=== PATIENT | male | born 1975 | race Asian ===

== ENCOUNTER 2025-03-24 19:13 | Inpatient (IN) | payer BC, SELFPAY ==
[2025-03-24] VITALS (13 sets, daily range): BP systolic 125–161; BP diastolic 72–94; BMI 25.4; BMI 25.6
--- NOTE | 2025-03-24 13:17 | ED.GENMED ---
History of Present Illness
<Radha Morales PA-C - Last Filed: 03/24/25 19:46>
General
Chief Complaint: Chest Pain
Source: patient
Exam Limitations: none
Time Seen by Provider: 03/24/25 13:16
History of Present Illness
History of Present Illness:
49yoM with no significant past medical history presenting for evaluation of chest pain. Symptoms began about 1.5 hours ago while he was doing some light chores around his house. He developed some discomfort in his central chest discomfort which he
thought was heartburn. He took a Pepcid without any relief. He subsequently felt an aching, throbbing discomfort in his left arm and jaw. He became worried that he was having a heart attack so came to the ED for evaluation. His arm/jaw
discomfort is now improved after taking Tylenol but he still has central chest tightness. He denies any shortness of breath, pleuritic pain, leg swelling, diaphoresis, nausea, vomiting, abdominal pain. No prior history of heart disease. He vapes
nicotine.
Phy Exam
<Radha Morales PA-C - Last Filed: 03/24/25 19:46>
General Physical Exam
General Presentation: well appearing and no apparent distress
General age: appears stated age
General Skin: warm and dry
General Habitus: normal
General Mental: alert
ENT Exam
ENT Exam: normocephalic
Cardiovascular Exam
Cardiovascular Exam: regular rate/rhythm, no edema, no murmur and normal peripheral pulses (2+ radial pulses bilaterally)
Pulmonary Exam
Pulmonary Exam: lungs clear, no respiratory distress, no rales, no crackles, no rhonchi and no wheezing
Neurological Exam
Neurological Exam: alert
[place] Coma Scale
Eye Opening: Spontaneous
Verbal Response: Oriented
Motor Response: Obeys Commands
GCS Total Score: 15
Skin Exam
Skin Exam: normal color and warm/dry
Psychiatric Exam
Psychiatric Exam: normal mood/affect
<Aida Donohue DO - Last Filed: 03/24/25 17:10>
[place] Coma Scale
GCS Total Score: 15
Scores
<Radha Morales PA-C - Last Filed: 03/24/25 19:46>
Heart Score for Chest Pain Patients
STEMI patient?: No
History: Moderately Suspicious
ECG: Normal
Age: >45 - <65 years
Risk Factors: 1 or 2 Risk Factors
Troponin: >/= 3 x Normal Limit
Heart Score for Chest Pain Patients: 5
Heart Score Risk: 20.3% MACE over next 6 weeks
Course
<Radha Morales PA-C - Last Filed: 03/24/25 19:46>
Orders/Labs/Results
Orders:
Orders
03/24/25 12:58
ECG [Electrocardiogram (*1)] Urgent
Reason for Study: Chest Pain
EKG- Treatment ONCE
03/24/25 13:10
Complete Blood Count/With Diff Urgent
03/24/25 13:11
Comprehensive Metabolic Panel Urgent
Troponin I Urgent
03/24/25 13:26
Cardiac Monitoring- Treatment ONCE
CR Chest - 2 Views Urgent
Comment:
Reason For Exam: CP
03/24/25 13:50
EKG- Treatment ONCE
03/24/25 Dinner
Cholesterol Lowering
Cholesterol Lowering: Sodium, 2 Gram
03/24/25 16:08
Troponin I Urgent
03/24/25 16:10
Electrocardiogram (*1) Urgent
Reason for Study: Chest Pain
03/24/25 16:44
Aspirin Chewable [Low Strength Aspirin] 324 mg PO NOW STA
03/24/25 16:52
Heparin 4,000 units IV NOW STA
Nursing to Place Non Medication Order As Directed
Physician Order: PTT 6 hours after initial start of Heparin infusion
Above order entered?: Yes
03/24/25 16:55
Nitroglycerin Sublingual [Nitrostat (Sublingual)] 0.4 mg SL NOW STA
03/24/25 16:57
PTT Urgent
Comment: Obtain baseline before beginning heparin infusion if not already collected
03/24/25 17:15
Heparin 83790 Units/250 ml 25,000 units in 250 ml IV PER PROTOCOL
Weight to be used for heparin protocol in kilograms (kg):: 78
Protocol:: Cardiac Tx/Acute Coronary
PTT Goal Range to be used:: PTT 73 to 111 seconds
Order type:: Initial
INITIAL Infusion Dose (UNITS/KG/hr) & then follow protocol:: 15 units/kg/hr
Infusion Dose in UNITS/hr & then follow protocol (UNITS/hr):: 1,150
INFUSION RATE in mL/hr & then follow protocol (mL/hr):: 11.5
PTT less than or equal to 64 seconds:: Increase rate by 200 units/hr (+ 2 mL/hr)
PTT 64.1 to 72.9 seconds:: Increase rate by 100 units/hr (+ 1 mL/hr)
PTT 73 to 111 seconds:: Target Range. No change in rate.
PTT 111.1 to 130.9 seconds:: Decrease rate by 100 units/hr (- 1 mL/hr)
PTT 131 to 199.9 seconds:: HOLD for 1 hr. Then decrease rate by 200 units/hr (- 2 mL/hr)
PTT greater than or equal to 200 seconds:: HOLD for 2 hrs & Notify Provider. Then decrease by 200 units/hr (-
2 mL/hr)
Lab follow-up:: Each change, PTT q6h until 2 consecutive are therapeutic. Then PTT
daily.
03/24/25 18:20
Admit Patient As Directed
Co-Sign Provider:
Level of Care: Inpatient admission
Assign to:: IVU
Physician / Group: Misha
Diagnosis: NSTEMI
Reason for Hospitalization: NE
Expected length of stay greater than two midnights?: Yes
ELOS- Estimated Length of Stay in days: 3
I certify the patient meets the requirements for IP care: Yes
Code Status As Directed
Resuscitation Status: Full Code
VTE Contraindication Routine
VTE Mechanical Device Contraindication: Medical Contraindication
Pharmocologic Contraindication: Medical Contraindication
03/24/25 18:21
Glycohemoglobin (HgbA1c) Routine
Activity As Directed
Activity Level: Bathroom Privileges
INT (Intravenous Needle Therapy) As Directed
Comment: maintain peripheral IV access
Intake/ Output As Directed
Frequency: Per unit guidelines
Vital Signs As Directed
Frequency: q4h
Weight As Directed
Frequency: Daily
PRN Pain Medication Management As Directed
May give lesser potent ordered pain med per pt: Yes
preference::
Protocol:: Medication orders for pain may be administered in a
manner that supports deferring to patient preference
when the pt is:
- Requesting an ordered lesser potent pain medication.
Least to most potent pain medications are defined
as: acetaminophen < NSAID < tramadol < opioids
(morphine, oxycodone, hydromorphone).
- Requesting a lesser dose of the same medication IF
ORDERED.
- Requesting a less intrusive route of administration
if both routes are prescribed by the provider (PO <
IV).
03/24/25 18:27
O2 Therapy [RESP] Routine
Nasal Cannula Liter Flow: 2 LPM
Titrate/Wean O2 to maintain O2 sat greater than (%): 90
Special Instructions: 2 liters/minute as needed for pulse oximetry less than 90%
03/24/25 18:28
Echo 2D MMode Color/Doppler Routine
Reason for Study: chest pain
ECG as needed As Directed
ECG as needed for:: Chest Pain
Additional Instructions:: with chest pain x 2 episodes.
03/24/25 18:30
Electrocardiogram (*1) Q3H
Reason for Study: Chest Pain
Comment: at admission and Q3H for total of 3, to be done with each troponin
Acetaminophen [Tylenol] 1,000 mg PO Q6HPRN PRN mild pain
03/24/25 18:32
Admit/Transfer Patient As Directed
Co-Sign Provider:
Level of Care: Inpatient admission
Assign to:: IVU
Physician / Group: Misha
Diagnosis: NSTEMI
Reason for Hospitalization: NE
Expected length of stay greater than two midnights?: Yes
ELOS- Estimated Length of Stay in days: 3
I certify the patient meets the requirements for IP care: Yes
PRN Pain Medication Management As Directed
May give lesser potent ordered pain med per pt: Yes
preference::
Protocol:: Medication orders for pain may be administered in a
manner that supports deferring to patient preference
when the pt is:
- Requesting an ordered lesser potent pain medication.
Least to most potent pain medications are defined
as: acetaminophen < NSAID < tramadol < opioids
(morphine, oxycodone, hydromorphone).
- Requesting a lesser dose of the same medication IF
ORDERED.
- Requesting a less intrusive route of administration
if both routes are prescribed by the provider (PO <
IV).
03/24/25 19:00
Atorvastatin [Lipitor] 40 mg PO QPM
03/24/25 19:26
Troponin I Q3H
Comment: at admit & Q3H for 3 total including ED draws, obtain ECG with each level
03/24/25 21:30
Electrocardiogram (*1) Q3H
Reason for Study: Chest Pain
Comment: at admission and Q3H for total of 3, to be done with each troponin
Troponin I Q3H
Comment: at admit & Q3H for 3 total including ED draws, obtain ECG with each level
03/24/25 23:20
PTT Urgent
03/25/25 00:30
Electrocardiogram (*1) Q3H
Reason for Study: Chest Pain
Comment: at admission and Q3H for total of 3, to be done with each troponin
Troponin I Q3H
Comment: at admit & Q3H for 3 total including ED draws, obtain ECG with each level
03/25/25 Breakfast
NPO
Allow oral meds: Yes
Allow clear liquids: Sips of Clears
Complete Blood Count/No Diff IN AM
Comprehensive Metabolic Panel IN AM
03/26/25 06:00
Complete Blood Count/No Diff IN AM
Comprehensive Metabolic Panel IN AM
03/27/25 06:00
Complete Blood Count/No Diff IN AM
Comprehensive Metabolic Panel IN AM
Abnormal Lab Results
03/24/25 03/24/25
13:11 16:08
Glucose 120 H mg/dl
(70-99)
Total Bilirubin 1.6 H mg/dl
(0.2-1.3)
Troponin I 0.117 H* D ng/ml
03/24/25 13:10
03/24/25 13:11
Vital Signs
Initial and Last Documented VS:
Initial Vital Signs
Temp Pulse Resp BP Pulse Ox
97.4 F 57 16 161/91 100
03/24/25 13:02 03/24/25 13:02 03/24/25 13:02 03/24/25 13:02 03/24/25 13:02
Last Documented Vital Signs
Temp Pulse Resp BP Pulse Ox
97.8 F 56 11 125/77 100
03/24/25 19:21 03/24/25 19:21 03/24/25 19:21 03/24/25 18:00 03/24/25 19:21
<Aida Donohue, - Last Filed: 03/24/25 17:10>
Orders/Labs/Results
Orders:
Orders
03/24/25 12:58
ECG [Electrocardiogram (*1)] Urgent
Reason for Study: Chest Pain
EKG- Treatment ONCE
03/24/25 13:10
Complete Blood Count/With Diff Urgent
03/24/25 13:11
Comprehensive Metabolic Panel Urgent
Troponin I Urgent
03/24/25 13:26
Cardiac Monitoring- Treatment ONCE
CR Chest - 2 Views Urgent
Comment:
Reason For Exam: CP
03/24/25 13:50
EKG- Treatment ONCE
03/24/25 Dinner
Cholesterol Lowering
Cholesterol Lowering: Sodium, 2 Gram
03/24/25 16:08
Troponin I Urgent
03/24/25 16:10
Electrocardiogram (*1) Urgent
Reason for Study: Chest Pain
03/24/25 16:44
Aspirin Chewable [Low Strength Aspirin] 324 mg PO NOW STA
03/24/25 16:52
Heparin 4,000 units IV NOW STA
Nursing to Place Non Medication Order As Directed
Physician Order: PTT 6 hours after initial start of Heparin infusion
Above order entered?: Yes
03/24/25 16:55
Nitroglycerin Sublingual [Nitrostat (Sublingual)] 0.4 mg SL NOW STA
03/24/25 16:57
PTT Urgent
Comment: Obtain baseline before beginning heparin infusion if not already collected
03/24/25 17:15
Heparin 22826 Units/250 ml 25,000 units in 250 ml IV PER PROTOCOL
Weight to be used for heparin protocol in kilograms (kg):: 78
Protocol:: Cardiac Tx/Acute Coronary
PTT Goal Range to be used:: PTT 73 to 111 seconds
Order type:: Initial
INITIAL Infusion Dose (UNITS/KG/hr) & then follow protocol:: 15 units/kg/hr
Infusion Dose in UNITS/hr & then follow protocol (UNITS/hr):: 1,150
INFUSION RATE in mL/hr & then follow protocol (mL/hr):: 11.5
PTT less than or equal to 64 seconds:: Increase rate by 200 units/hr (+ 2 mL/hr)
PTT 64.1 to 72.9 seconds:: Increase rate by 100 units/hr (+ 1 mL/hr)
PTT 73 to 111 seconds:: Target Range. No change in rate.
PTT 111.1 to 130.9 seconds:: Decrease rate by 100 units/hr (- 1 mL/hr)
PTT 131 to 199.9 seconds:: HOLD for 1 hr. Then decrease rate by 200 units/hr (- 2 mL/hr)
PTT greater than or equal to 200 seconds:: HOLD for 2 hrs & Notify Provider. Then decrease by 200 units/hr (-
2 mL/hr)
Lab follow-up:: Each change, PTT q6h until 2 consecutive are therapeutic. Then PTT
daily.
03/24/25 18:20
Admit Patient As Directed
Co-Sign Provider:
Level of Care: Inpatient admission
Assign to:: IVU
Physician / Group: Misha
Diagnosis: NSTEMI
Reason for Hospitalization: NE
Expected length of stay greater than two midnights?: Yes
ELOS- Estimated Length of Stay in days: 3
I certify the patient meets the requirements for IP care: Yes
Code Status As Directed
Resuscitation Status: Full Code
VTE Contraindication Routine
VTE Mechanical Device Contraindication: Medical Contraindication
Pharmocologic Contraindication: Medical Contraindication
03/24/25 18:21
Glycohemoglobin (HgbA1c) Routine
Activity As Directed
Activity Level: Bathroom Privileges
INT (Intravenous Needle Therapy) As Directed
Comment: maintain peripheral IV access
Intake/ Output As Directed
Frequency: Per unit guidelines
Vital Signs As Directed
Frequency: q4h
Weight As Directed
Frequency: Daily
PRN Pain Medication Management As Directed
May give lesser potent ordered pain med per pt: Yes
preference::
Protocol:: Medication orders for pain may be administered in a
manner that supports deferring to patient preference
when the pt is:
- Requesting an ordered lesser potent pain medication.
Least to most potent pain medications are defined
as: acetaminophen < NSAID < tramadol < opioids
(morphine, oxycodone, hydromorphone).
- Requesting a lesser dose of the same medication IF
ORDERED.
- Requesting a less intrusive route of administration
if both routes are prescribed by the provider (PO <
IV).
03/24/25 18:27
O2 Therapy [RESP] Routine
Nasal Cannula Liter Flow: 2 LPM
Titrate/Wean O2 to maintain O2 sat greater than (%): 90
Special Instructions: 2 liters/minute as needed for pulse oximetry less than 90%
03/24/25 18:28
Echo 2D MMode Color/Doppler Routine
Reason for Study: chest pain
ECG as needed As Directed
ECG as needed for:: Chest Pain
Additional Instructions:: with chest pain x 2 episodes.
03/24/25 18:30
Electrocardiogram (*1) Q3H
Reason for Study: Chest Pain
Comment: at admission and Q3H for total of 3, to be done with each troponin
Acetaminophen [Tylenol] 1,000 mg PO Q6HPRN PRN mild pain
03/24/25 18:32
Admit/Transfer Patient As Directed
Co-Sign Provider:
Level of Care: Inpatient admission
Assign to:: IVU
Physician / Group: Misha
Diagnosis: NSTEMI
Reason for Hospitalization: NE
Expected length of stay greater than two midnights?: Yes
ELOS- Estimated Length of Stay in days: 3
I certify the patient meets the requirements for IP care: Yes
PRN Pain Medication Management As Directed
May give lesser potent ordered pain med per pt: Yes
preference::
Protocol:: Medication orders for pain may be administered in a
manner that supports deferring to patient preference
when the pt is:
- Requesting an ordered lesser potent pain medication.
Least to most potent pain medications are defined
as: acetaminophen < NSAID < tramadol < opioids
(morphine, oxycodone, hydromorphone).
- Requesting a lesser dose of the same medication IF
ORDERED.
- Requesting a less intrusive route of administration
if both routes are prescribed by the provider (PO <
IV).
03/24/25 19:00
Atorvastatin [Lipitor] 40 mg PO QPM
03/24/25 19:26
Troponin I Q3H
Comment: at admit & Q3H for 3 total including ED draws, obtain ECG with each level
03/24/25 21:30
Electrocardiogram (*1) Q3H
Reason for Study: Chest Pain
Comment: at admission and Q3H for total of 3, to be done with each troponin
Troponin I Q3H
Comment: at admit & Q3H for 3 total including ED draws, obtain ECG with each level
03/24/25 23:20
PTT Urgent
03/25/25 00:30
Electrocardiogram (*1) Q3H
Reason for Study: Chest Pain
Comment: at admission and Q3H for total of 3, to be done with each troponin
Troponin I Q3H
Comment: at admit & Q3H for 3 total including ED draws, obtain ECG with each level
03/25/25 Breakfast
NPO
Allow oral meds: Yes
Allow clear liquids: Sips of Clears
Complete Blood Count/No Diff IN AM
Comprehensive Metabolic Panel IN AM
03/26/25 06:00
Complete Blood Count/No Diff IN AM
Comprehensive Metabolic Panel IN AM
03/27/25 06:00
Complete Blood Count/No Diff IN AM
Comprehensive Metabolic Panel IN AM
Abnormal Lab Results
03/24/25 03/24/25
13:11 16:08
Glucose 120 H mg/dl
(70-99)
Total Bilirubin 1.6 H mg/dl
(0.2-1.3)
Troponin I 0.117 H* D ng/ml
03/24/25 13:10
03/24/25 13:11
Vital Signs
Initial and Last Documented VS:
Initial Vital Signs
Temp Pulse Resp BP Pulse Ox
97.4 F 57 16 161/91 100
03/24/25 13:02 03/24/25 13:02 03/24/25 13:02 03/24/25 13:02 03/24/25 13:02
Last Documented Vital Signs
Temp Pulse Resp BP Pulse Ox
97.8 F 56 11 125/77 100
03/24/25 19:21 03/24/25 19:21 03/24/25 19:21 03/24/25 18:00 03/24/25 19:21
<Radha Morales PA-C - Last Filed: 03/24/25 19:46>
MDM/Problems Addressed
Differential Diagnosis Includes:
49yoM here with central chest discomfort that began while doing housework. Associated with aching discomfort in L arm and L jaw. He is hypertensive in triage with otherwise stable vitals. He is non-toxic appearing. Differential diagnosis includes
but is not limited to: ACS, esophagitis, musculoskeletal, doubt PE as oxygen saturation is 100% and he is not having any pleuritic pain
Initial ED plan: Triage EKG shows sinus bradycardia without ischemic changes. Will check cardiac labs and CXR.
<Radha Morales PA-C - Last Filed: 03/24/25 19:46>
*Pulse Oximetry
SaO2: 100
Oxygen Mode of Delivery: Room air
Patient hypoxic: no
*EKG
Interpreted by ED Provider?: Yes
EKG Intrepretation Date: 03/24/25
Heart Rate: 55
Rate: bradycardiac
Rhythm: sinus
[place]: normal axis
Interval: normal interval
QRS Pattern: normal QRS
Ischemia: no ischemia
<Aida Donohue DO - Last Filed: 03/24/25 17:10>
*Critical Care Note
Total Time (30-74mins, 75-104mins- exclusive of procedures): 37
comment:
The high probability of a clinically significant, sudden or life threatening deterioration of the cardiac system(s), NSTEMI, required my full and direct attention, intervention and personal management. The aggregate critical care time was []
minutes. This time is in addition to time spent performing reported procedures but includes the following:
[x] Data Review and interpretation
[x] Patient assessment and monitoring of vital signs
[x] Documentation
[x] Medication orders and management
<Radha Morales PA-C - Last Filed: 03/24/25 19:46>
Update Note
Update Note:
Initial troponin normal at 0.017. Repeat troponin obtained at 3 hours elevated at 0.117. Repeat EKG remains unchanged without ST changes. Aspirin and heparin infusion ordered. Discussed case with cardiology and patient admitted to the cardiology
service for further management of NSTEMI.
ED Attending Note
<Radha Morales PA-C - Last Filed: 03/24/25 19:46>
-
Portions of this chart may have been created with voice recognition software.� Occasional wrong word or��sound alike� substitutions may have occurred due to the inherent limitations of voice recognition software.
<Aida Donohue DO - Last Filed: 03/24/25 17:10>
ED Attending Note
Patient seen and examined by attending physician: Yes
I performed the substantive portion of visit, reviewed & personally made and approve the management plan that is documented in note by myself or SHANTA.: Yes
I performed a history and physical exam of patient and discussed management with resident, I reviewed resident's note and agree with documented findings and plan of care.: Yes
ED Attending Note:
49-year-old male with history of gastric reflux presenting to the emergency department for chest pain. Patient reports an hour prior to arrival he was doing some work around the house and started to have substernal chest pain. He thought it could
be reflux, so took some OTC medication. The pain then started to go into his arm and his jaw which prompted him to come to the hospital. Denies known cardiac history or significant family history of cardiac disease. Pain is still present. Denies
dyspnea. Signs on arrival significant for high blood pressure.
On exam, patient resting comfortably, no acute distress. Initial EKG without obvious hemic abnormality. Unremarkable cardiac and pulmonary. Patient seen and evaluated by physician recreation assistant with appropriate workup completed including troponin.
Initial troponin detectable, however within normal limits. Given timing of symptoms, second troponin sent, which is now elevated. Patient notes that his pain at this time is 2/10. Aspirin administered and will also give sublingual nitro. Concern
for NSTEMI. Cardiology made aware. Plan for admission on heparin drip with cardiac consultation
Discharge Plan
Departure
Patient Disposition: Admit
Date of Disposition: 03/24/25
Time of Disposition: 16:52
Presentation/result/management discussed w/ accepting /DO: Dr. Cabral
Discharge Problem:
Non-ST elevation NE (NSTEMI)
Interventions
Interventions:
*Risk Screen - Suicide Last Done: 03/24/25 13:19
*General Assessment Last Done: 03/24/25 13:19
*Neglect/Abuse Screening Last Done: 03/24/25 13:19
ED- Cardiac Assessment Last Done: 03/24/25 13:19
[2025-03-24 13:18] LABS: Hematocrit 41.7 % (39.0-52.0); Hemoglobin 14.5 g/dL (13.0-18.0); Mean Corp Hgb Conc. 34.8 g/dL (33.0-37.0); Mean Corpuscular Volume 86.3 fL (80.0-94.0); Nucleated Red Blood Cells % 0 % (-); Platelet Count 291 10^3/uL (130-400); Red Cell Dist. Width 12.1 % (11.5-14.5)
[2025-03-24 13:29] LABS: ALT (SGPT) 27 U/L (0-50); AST (SGOT) 21 U/L (17-59); Albumin 4.8 g/dl (3.5-5.0); Alkaline Phosphatase 69 U/L (38-126); Blood Urea Nitrogen 14 mg/dl (9-20); Calcium 9.3 mg/dl (8.4-10.2); Carbon Dioxide 26 mmol/L (22-30); Chloride 104 mmol/L (98-107); Estimated Creatinine Clearance 97 ml/min; Glucose 120 mg/dl (70-99); Potassium 4.4 mmol/L (3.5-5.1); Sodium 137 mmol/L (135-145); Total Protein 8.0 g/dl (6.3-8.2); eGFR > 60.00
[2025-03-24 13:41] LABS: Troponin I 0.017 ng/ml
[2025-03-24 16:39] LABS: Troponin I 0.117 ng/ml
[2025-03-24] MEDS: LOW STRENGTH ASPIRIN 324 MG PO (16:47)
[2025-03-24] MEDS: NITROSTAT (SUBLINGUAL) 0.4 MG SL (17:01)
[2025-03-24] MEDS: HEPARIN 4000 UNITS IV (17:03)
[2025-03-24] MEDS: HEPARIN 25000 UNITS/250 ML IV (17:11)
[2025-03-24 17:13] LABS: APTT 26.0 Sec (23.4-35.0)
[2025-03-24] MEDS: LIPITOR 40 MG PO (19:34)
--- NOTE | 2025-03-24 20:37 | CON.CAR ---
Consultation
Consultation Request
Date/Time Consultation Requested: 03/24/2025
Reason for Consultation: Chest pain
Medical History
-
Chief Complaint: Chest pain
History of Present Illness:
49-year-old gentleman with no significant past medical history other than GERD and a prior history of 20+ pack year smoking, quit 15 to 20 years ago, presented to the ER with new onset of chest pain/pressure. Patient chest pain started 1 to 2 hours
prior to arrival to the ER which was light discomfort which she initially attributed to heartburn. He took [id number] GERD medications like Pepcid without any significant improvement. Later he noticed that his chest discomfort is associated
with radiation to his left arm and left jaw. He denies any shortness of breath. Pain was 3 out of 10 at the most.
In the ER patient was evaluated with serial EKGs and troponins. Patient's second troponin came back as positive. Initial troponin was 0.017 and was increased to 10 times of 0.117.
He reported that his third cousin had sudden cardiac in his 40s. He had chest pressure and pain in attributed to heartburn. He slept on it and was not able to wake up.
Past Medical History
Past Medical History: GERD
Social History
Tobacco: Former Smoker
Alcohol: None
Drug: None
Personal:
Living: With Family
Family History
Family History: Reviewed & Not Pertinent
Allergies / Home Medications
Allergy/AdvReac Type Severity Reaction Status Date / Time
No Known Allergies Allergy Unverified 03/24/25 13:00
�Medication �Instructions �Recorded �Confirmed �Type
[place] 1 cap PO DAILY Supplement 03/24/25 03/24/25 History
acetaminophen 500 mg tablet 1,000 mg PO Q6HPRN PRN mild pain 03/24/25 03/24/25 History
(Tylenol Extra Strength)
cetirizine 10 mg tablet (Zyrtec) 10 mg PO DAILY Allergies 03/24/25 03/24/25 History
finasteride 1 mg tablet 1 mg PO DAILY hair loss 03/24/25 03/24/25 History
omega 0-euf-etw-fish oil 900 1 cap PO DAILY Supplement 03/24/25 03/24/25 History
mg-1,400 mg capsule,delayed release
Review of Systems
-
All other systems: Negative unless noted
Physical Exam
Vital Signs
Temp Pulse Resp BP Pulse Ox
97.8 F 56 11 125/77 100
03/24/25 19:21 03/24/25 19:21 03/24/25 19:21 03/24/25 18:00 03/24/25 19:21
Lab Results
03/24/25 13:10
03/24/25 13:11
Troponin I Cancelled 03/24/25 19:26
Physical Exam
General: Well Developed, Well Nourished and No Apparent Distress
HEENT: Normocephalic, Anicteric and Moist Mucous Membranes
Respiratory: Clear and Non Labored Respirations
Cardiac: S1/S2 and Regular Rhythm
GI: Soft, Non Tender, Non Distended and Normal Bowel Sounds
Musculoskeletal: No Clubbing, No Cyanosis and No Edema
Skin: Warm and Dry
Neuro: Awake, Alert, Oriented, AO x 3 and No Motor Deficits
Impression / Plan
-
53-year-old gentleman with new onset chest pressure associated with non-ST elevation myocardial infarction.
NSTEMI
- Acute coronary syndrome is ruled in.
- Currently chest pain-free.
- Patient's myocardial infarction is significant threat to his life. We will admit patient and continue to monitor.
- Will treat him with aspirin, heparin and start statins.
- Will start patient on metoprolol 25 mg twice daily as well with elevated blood pressure.
- Admit to telemetry.
- Serial troponins.
- Assess for peak troponin. Based on the peak or recurrence of chest pain symptoms we will consider more aggressive approach.
- Plan for cardiac cath on Wednesday if remains chest pain-free.
- Check lipid profile, TSH.
- Echo and cath on Wednesday.
Hypertension
- Patient is not known to have high blood pressure.
- Current blood pressure is 130s to 140s over 70s.
- Will start metoprolol 25 mg twice daily.
Data Reviewed
-
EKG: Tracing Personally Visualized and interpreted and Report Reviewed by me
Radiology: Image Personally Visualized and interpreted
Labs: Labs Reviewed by me
Old Records: Reviewed
[2025-03-24 21:36] LABS: Troponin I 1.310 ng/ml
[2025-03-24] MEDS: LOPRESSOR 25 MG PO (22:15)
[2025-03-24 23:52] LABS: APTT 54.4 Sec (23.4-35.0)
[2025-03-25] VITALS (9 sets, daily range): BP systolic 102–130; BP diastolic 71–86; BMI 25.6
[2025-03-25 00:19] LABS: Troponin I 2.260 ng/ml
--- NOTE | 2025-03-25 06:00 | PTCARENOTE ---
Pt rec'd as ED admit just before HS. Chest discomfort 'vague, not really noticeable'per pt. Sinus on telemetry but michele during the night 40's after getting Lopressor. heparin adjusted with rate currently at 1350 units/hr. Upon taking pt's history
pt stated he has noticed blood in his stools blames it on hemorrhoids. Pt stated ' I know I really have to get my colonoscopy done'. Pt denies black or bright red stools at home. collection hat placed in toilet for next bm to Hematest.
[2025-03-25 06:42] LABS: Hematocrit 39.0 % (39.0-52.0); Hemoglobin 13.5 g/dL (13.0-18.0); Mean Corp Hgb Conc. 34.6 g/dL (33.0-37.0); Mean Corpuscular Volume 86.9 fL (80.0-94.0); Platelet Count 283 10^3/uL (130-400); Red Cell Dist. Width 12.3 % (11.5-14.5)
[2025-03-25 06:50] LABS: APTT 82.5 Sec (23.4-35.0)
[2025-03-25 07:07] LABS: Troponin I 2.880 ng/ml
[2025-03-25 07:16] LABS: ALT (SGPT) 24 U/L (0-50); AST (SGOT) 33 U/L (17-59); Albumin 3.9 g/dl (3.5-5.0); Alkaline Phosphatase 68 U/L (38-126); Blood Urea Nitrogen 14 mg/dl (9-20); Calcium 9.1 mg/dl (8.4-10.2); Carbon Dioxide 24 mmol/L (22-30); Chloride 106 mmol/L (98-107); Estimated Creatinine Clearance 97 ml/min; Glucose 111 mg/dl (70-99); HDL Cholesterol 43 mg/dl; LDL Cholesterol, Calculated 147 mg/dl; Potassium 3.8 mmol/L (3.5-5.1); Sodium 137 mmol/L (135-145); Total Protein 6.6 g/dl (6.3-8.2); Very Low Density Lipoprotein 19 mg/dl (0-30); eGFR > 60.00
[2025-03-25] MEDS: LOW STRENGTH ASPIRIN 81 MG PO (08:46)
--- NOTE | 2025-03-25 08:49 | PTCARENOTE ---
received patient this am, awake, alert, no c/o chest pain or discomfort. monitor shows SB, HR in the 40's, VSS. IV heparin @ 1350units/hr via right forearm. patient is aware he is NPO until seen by cardiology.
--- NOTE | 2025-03-25 08:55 | W.PN.CD ---
Today's Communication / Plan
-
N.p.o. after midnight
Plan for cardiac cath in AM.
Plan for echo tomorrow.
Impression / Plan
-
53-year-old gentleman with new onset chest pressure associated with non-ST elevation myocardial infarction.
NSTEMI
- Acute coronary syndrome is ruled in.
- Troponin was at 0.017 at presentation then went up to 0.12 then 1.3 and 2.26 at midnight. Troponin was 2.88 this morning and is already appears to be peaked.
- Will obtain next troponin.
- Currently chest pain-free.
- Patient's myocardial infarction is significant threat to his life. We will admit patient and continue to monitor.
- Will treat him with aspirin, heparin and statins.
- started on metoprolol 25 mg twice daily as well with elevated blood pressure.
- Assess for peak troponin. Based on the peak or recurrence of chest pain symptoms we will consider more aggressive approach.
- Plan for cardiac cath on Wednesday if remains chest pain-free.
- Check lipid profile, TSH.
- Echo and cath on Wednesday.
-Ventricular ectopy
-PACs and PVCs noted.
-Continue metoprolol.
Hypertension
- Patient is not known to have high blood pressure.
- Current blood pressure is 130s to 140s over 70s.
- Will start metoprolol 25 mg twice daily.
Physical Exam
Vital Signs/Labs
Vital Signs
Temp Pulse Resp BP Pulse Ox
98.2 F 56 20 102/71 98
03/24/25 23:38 03/25/25 05:45 03/24/25 23:38 03/25/25 05:05 03/24/25 23:38
03/24/25 03/25/25 03/26/25
06:59 06:59 06:59
Actual Weight 78.7 kg
03/25/25 06:22
03/25/25 06:22
APTT 82.5 Sec (23.4-35.0) H 03/25/25 06:22
Triglycerides 99 mg/dl (10-149) 03/25/25 06:22
LDL Cholesterol, Calc 147 mg/dl 03/25/25 06:22
VLDL Cholesterol, Calc 19 mg/dl (0-30) 03/25/25 06:22
HDL Cholesterol 43 mg/dl 03/25/25 06:22
LAB Results
03/24/25 03/24/25 03/24/25
13:11 16:08 19:26
Troponin I 0.017 0.117 H* D Cancelled
03/24/25 03/24/25 03/25/25
20:51 23:29 06:22
Troponin I 1.310 H* D 2.260 H* D 2.880 H* D
Physical Exam
Constitutional: No acute distress and Comfortable
EENT: Anicteric and Moist mucous membranes
Cardiovascular: Rhythm & rate is regular, Pedal edema is absent and JVD pressure is normal
Respiratory: Respiratory effort normal, Lungs clear to auscul. and Wheeze Absent
GI: Soft, Non tender and Normal bowel sounds
Neuro/Psych: Alert, Oriented and AO x 3
Data Reviewed
-
Date of Service: March 25, 2025
Medical Decision Making: Reviewed Test Results, Test Interpretation and Review of Case with other Provider
EKG: Tracing Personally Visualized and interpreted
X-Ray/CT/US/MRI/NUC/PET: Image Personally Visualized and interpreted
Labs: Labs Reviewed by me
Old Records: Reviewed
[2025-03-25] MEDS: LOPRESSOR 25 MG PO ×2 (09:35→19:37)
--- NOTE | 2025-03-25 10:25 | PTCARENOTE ---
Addendum entered by Criss May RN 03/25/25 10:29:
No gross blood was seen.
Original Note:
The patient had a large BM. Half of his BM was hard and formed, the other half was soft and formed. Hem tested the patient's stool. The first panel was positive, the second panel was negative. The controls were correct.
[2025-03-25] MEDS: HEPARIN 25000 UNITS/250 ML IV (11:46)
[2025-03-25 13:08] LABS: Glycohemoglobin (HgbA1c) 5.3 % (4.0-5.9)
[2025-03-25 13:14] LABS: APTT 81.5 Sec (23.4-35.0)
[2025-03-25 13:40] LABS: Troponin I 1.970 ng/ml
[2025-03-25] MEDS: LIPITOR 40 MG PO (17:18)
--- NOTE | 2025-03-25 23:59 | PTCARENOTE ---
Pt. in NSR on monitor, VSS, no complaints of chest pain/discomfort. Heparin gtt infusing at 1350 units/hr. 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 aware of plan of care. Independent & ambulatory in room. Currently sleeping.
[2025-03-26] VITALS (15 sets, daily range): BP systolic 106–135; BP diastolic 68–99; BMI 25.1
[2025-03-26 02:10] LABS: Hematocrit 38.0 % (39.0-52.0); Hemoglobin 13.3 g/dL (13.0-18.0); Mean Corp Hgb Conc. 35.0 g/dL (33.0-37.0); Mean Corpuscular Volume 85.8 fL (80.0-94.0); Platelet Count 283 10^3/uL (130-400); Red Cell Dist. Width 12.2 % (11.5-14.5)
[2025-03-26 02:16] LABS: APTT 95.4 Sec (23.4-35.0)
[2025-03-26 03:04] LABS: ALT (SGPT) 24 U/L (0-50); AST (SGOT) 29 U/L (17-59); Albumin 4.2 g/dl (3.5-5.0); Alkaline Phosphatase 70 U/L (38-126); Blood Urea Nitrogen 13 mg/dl (9-20); Calcium 9.0 mg/dl (8.4-10.2); Carbon Dioxide 24 mmol/L (22-30); Chloride 104 mmol/L (98-107); Estimated Creatinine Clearance 109 ml/min; Glucose 110 mg/dl (70-99); Potassium 3.7 mmol/L (3.5-5.1); Sodium 135 mmol/L (135-145); Total Protein 7.0 g/dl (6.3-8.2); eGFR > 60.00
[2025-03-26] MEDS: HEPARIN 25000 UNITS/250 ML IV (06:25)
[2025-03-26] MEDS: LOW STRENGTH ASPIRIN 81 MG PO (09:18)
[2025-03-26] MEDS: LOPRESSOR 25 MG PO ×2 (09:18→19:52)
--- NOTE | 2025-03-26 09:50 | PTCARENOTE ---
Echo being completed at bedside.
[2025-03-26] MEDS: ZYRTEC 10 MG PO (10:15)
--- NOTE | 2025-03-26 11:48 | W.PN.CD ---
Today's Communication / Plan
-
Cardiac catheterization today to clarify coronary anatomy.
Impression / Plan
-
Impression/Plan: 53-year-old gentleman with remote tobacco abuse admitted with non-ST elevation myocardial infarction.
#NSTEMI
-Acute, threat to life.
-Troponin peaked at 2.88.
-Echocardiogram performed, read is pending.
-Continue heparin, aspirin, metoprolol atorvastatin.
-Coronary angiography today to clarify coronary anatomy.
#Ventricular ectopy
-PACs and PVCs noted.
-Continue metoprolol.
#Hypertension
-This would be a new diagnosis, possibly conditional.
-BP's normalized, currently on metoprolol.
#Hyperlipidemia
-New diagnosis.
-Total cholesterol = 209, LDL = 147, HDL = 43, Triglycerides = 99.
-Atorvastatin 40 mg daily started.
-Goal LDL < 55.
Subjective/Interval History:
No acute events.
Echo completed this morning. Results pending.
Physical Exam
Vital Signs/Labs
Vital Signs
Temp Pulse Resp BP Pulse Ox
36.9 C 73 16 124/87 98
03/26/25 11:07 03/26/25 10:00 03/26/25 11:07 03/26/25 09:18 03/26/25 11:07
03/24/25 03/25/25 03/26/25
11:59 11:59 11:59
Actual Weight 78.7 kg 77.1 kg
03/26/25 01:50
03/26/25 01:50
APTT 95.4 Sec (23.4-35.0) H 03/26/25 01:50
Triglycerides 99 mg/dl (10-149) 03/25/25 06:22
LDL Cholesterol, Calc 147 mg/dl 03/25/25 06:22
VLDL Cholesterol, Calc 19 mg/dl (0-30) 03/25/25 06:22
HDL Cholesterol 43 mg/dl 03/25/25 06:22
LAB Results
03/24/25 03/24/25 03/24/25
13:11 16:08 19:26
Troponin I 0.017 0.117 H* D Cancelled
03/24/25 03/24/25 03/25/25
20:51 23:29 06:22
Troponin I 1.310 H* D 2.260 H* D 2.880 H* D
03/25/25
12:54
Troponin I 1.970 H* D
Physical Exam
Constitutional: No acute distress and Comfortable
EENT: Anicteric and Moist mucous membranes
Cardiovascular: Rhythm & rate is regular, Pedal edema is absent, JVD pressure is normal, S1S2 is normal and Murmur/rub/gallop absent
Respiratory: Respiratory effort normal, Lungs clear to auscul., Wheeze Absent, Crackles Absent and Rhonchi Absent
GI: Soft, Distention absent, Flat, Non tender and Normal bowel sounds
Neuro/Psych: AO x 3
Data Reviewed
-
Date of Service: March 26, 2025
Medical Decision Making: Reviewed Test Results, Independent Historian Assessment and Test Interpretation
EKG: Tracing Personally Visualized and interpreted and Report Reviewed by me
X-Ray/CT/US/MRI/NUC/PET: Image Personally Visualized and interpreted and Report Reviewed by me
Labs: Labs Reviewed by me
Old Records: Reviewed
--- NOTE | 2025-03-26 11:56 | CM ---
Addendum entered by Tatum Mullins 03/26/25 15:48:
Received consult to check on co-pay for Brilinta 90 mg po bid. Telephone call to his prescription plan to check on co-pay. His co-pay for Brilinta is $35.00 a month or $87.50 for three months. Ticagrelor co-pay is $10.00 a month or $25.00 or three
months. Reviewed co-pay with Mr. Willett is is agreeable to the Ticagrelor. Telephone call to his [facility]. They have Ticagrelor in stock. N.P to sent the script.
Original Note:
Reviewed chart. Met with and Mrs. Willett to review discharge plans. He state prior to admission he resides with his spouse and four children in a two story home with one step to enter. He states he has a full flight of steps to get to
bedroom/full bathroom. He states he has a powder room on the first floor. He states prior to admisison he was independent with ambulation and adls. He states he does not have any DME in the home. He states he has a prescription plan and uses [facility]. Meidcal work-up in progress. The discharge plan is to return home with his spouse and children when medically stable.
--- NOTE | 2025-03-26 14:44 | ITS.CL.ANGIO ---
[employer] - Angioplasty
Angioplasty
Procedure Report:
CARDIAC CATHETERIZATION REPORT
Date of Procedure: 03/26/2025
Referring: Irving Cabral M.D.
INDICATION: Non-ST elevation myocardial infarction.
PROCEDURE:
1. Left heart catheterization.
2. Coronary angiography
3. Successful IVUS guided PCI of the mid LAD.
A total of 59 minutes of procedural/moderate sedation was utilized. An independent medical customer service representative was present to assist with and help manage the patient's level of consciousness and physiologic status.
ACCESS:
1. 6 [place] right radial artery using a modified Seldinger technique.
CATHETERS:
1. 5 [place] JR4.
2. 5 [place] JL 3.5.
3. 6 [place] EBU 3.5 guiding catheter.
HEMODYNAMIC DATA
Weight (kg): 78.5
AO (s/d/x, mmHg): 110/69/84
LV (s/x mmHg): 117/9
AV gradient (x, mmHg): 11 mmHg
LEFT VENTRICULOGRAPHY: Not performed.
CORONARY ANGIOGRAPHY
Dominance: Right.
Left Main: Normal size, bifurcating vessel. There is no coronary artery disease.
LAD: Large size vessel giving rise to 3 diagonals before wrapping around the apex and supplying the distal inferior wall. There is an 80% lesion in the mid vessel immediately after the origin of D1. This plaque extends distal and spans
the origin of the small second diagonal. There is a 60% lesion in the apical LAD. There is a 50-60% lesion in the proximal D1.
Ramus: Congenitally absent.
Circumflex: Large size, nondominant vessel giving rise to 3 obtuse marginals. There is a 30% lesion in the ostium of of the ostial circumflex. There is a 50% lesion in the midportion of OM1. There is a 50-60% lesion in the distal circumflex
proximal to the origin of the small third obtuse marginal.
RCA: Large size, dominant vessel with a large posterolateral arcade. There is a 40% lesion in the distal RPL.
INTERVENTION(S)
1. Successful IVUS guided PCI of the 80% mid LAD lesion (Xience Skypoint 3.0 x 38 DARREN, postdilated with a 3.25 NC balloon throughout and a 3.5 x 20 NC balloon in the proximal margin) with reduction in stenosis to 0%, maintaining AGUS-3 flow.
Narrative:
The decision was made to proceed with percutaneous coronary intervention. The diagnostic catheter was removed over a wire and a 6Fr EBU 3.5 guiding catheter was advanced to the aortic root and seated in the left main coronary artery. Additional
heparin was given and a Power Turn Flex wire was advanced into the distal LAD. A BMW wire was inserted into the proximal diagonal for protection as well as to serve as a marker. The 80% mid LAD lesion was predilated with a 2.0 x 12 semi-compliant
balloon to 12 cayetano. The decision was made to predilate more aggressively. The 2.0 x 12 semicompliant balloon was withdrawn and a 3.0 x 30 semicompliant balloon was advanced. The mid LAD was dilated to 12 cayetano.
The decision was made to perform intracoronary imaging. An IVUS catheter was advanced through the guiding catheter and into the ostium of the artery. Ring down was performed once the imaging crystal was no longer inside of the guiding catheter. The
IVUS catheter was advanced into the mid LAD, beyond the lesion. Intravascular ultrasound was performed in a retrograde fashion using a slow pullback. Intracoronary imaging demonstrated severe atherosclerotic disease in the diseased segment. Vessel
measurements were obtained.
The IVUS catheter was removed and a Xience Skypoint 3.0 x 38 drug-eluting stent was advanced. The stent was deployed at 12 atmospheres. The stent balloon was removed. A 3.25 x 20 noncompliant balloon was advanced into the stent and the entire stent
was postdilated to 15 atmospheres. The 3.25 x 20 NC balloon was withdrawn and a 3.5 x 20 NC balloon was advanced. The proximal margin of the stent was postdilated to 15 cayetano.
The noncompliant balloon was withdrawn and IVUS was repeated. This demonstrated excellent stent expansion and apposition with no evidence of vessel compromise. The IVUS catheter was withdrawn.
Angiography was performed in orthogonal views, confirming good stent expansion and an excellent angiographic result. The coronary wire was withdrawn and the guide was disengaged from the artery. The catheter was removed over a standard J-wire.
Closure Device: Vascular band.
Radiation (mGy): 97.1
DAP (cm2.Gy): 27.1
Fluoroscopy time (minutes): 13.2
CONCLUSIONS
1. Right dominant circulation with a 40% lesion in the distal RPL, a 30% lesion in the ostium of the circumflex, a 50% lesion in the midportion of OM1 with a 50-60% lesion in the distal circumflex proximal to the origin of the small OM 3, a 50-60%
lesion in the proximal D1, a 60% lesion in the apical LAD and a culprit, 80% lesion in the mid LAD status post successful IVUS guided PCI (Xience Skypoint 3.0 x 38 DARREN, postdilated with a 3.25 NC balloon throughout and a 3.5 x 20 NC balloon in the
proximal margin) with reduction in stenosis to 0%, maintaining AGUS-3 flow.
2. Normal filling pressures (LVEDP = 9 mmHg at 78.5 kg).
RECOMMENDATIONS:
1. Expectant management after cardiac catheterization via right radial approach.
2. Limited weight bearing on the right wrist for one week.
3. Dual antiplatelet therapy with aspirin anticoagulant for at least 12 months, followed by aspirin indefinitely.
4. OMT/GDMT as hemodynamics will tolerate.
5. Aggressive secondary prevention with high-dose, high potency statin. Goal LDL <55.
6. Echocardiogram ordered and pending.
7. Referral to cardiac rehab.
Copy to: Irving Cabral M.D., Oniel Noe M.D.
Ganesh Rebollar DO, FACC, FACP
[2025-03-26 15:50] LABS: ACT-LR - POC > 397 Seconds (116-155)
[2025-03-26 15:50] LABS: ACT-LR - POC > 397 Seconds (116-155)
[2025-03-26] MEDS: LIPITOR 80 MG PO (18:06)
[2025-03-26] MEDS: TYLENOL 1000 MG PO (20:02)
--- NOTE | 2025-03-26 21:27 | PTCARENOTE ---
Rec'd pt at change of shift. Pt AAO*3, VSS, and SR on tele monitor. Pt complained of pain in right wrist and PRN Tylenol given as ordered in addition to cold compress. Pt with r radial site CDI. Pt now resting with call sheffield in reach. Plan of
care discussed with pt. See MAR and flowchart for full pt care and assessment.
[2025-03-27 04:01] VITALS: BP 110/78
[2025-03-27 04:19] VITALS: BMI 25.4
[2025-03-27 04:39] LABS: Hematocrit 37.3 % (39.0-52.0); Hemoglobin 13.1 g/dL (13.0-18.0); Mean Corp Hgb Conc. 35.1 g/dL (33.0-37.0); Mean Corpuscular Volume 88.0 fL (80.0-94.0); Platelet Count 279 10^3/uL (130-400); Red Cell Dist. Width 12.0 % (11.5-14.5)
[2025-03-27 04:57] LABS: ALT (SGPT) 25 U/L (0-50); AST (SGOT) 28 U/L (17-59); Albumin 4.0 g/dl (3.5-5.0); Alkaline Phosphatase 67 U/L (38-126); Blood Urea Nitrogen 16 mg/dl (9-20); Calcium 8.9 mg/dl (8.4-10.2); Carbon Dioxide 25 mmol/L (22-30); Chloride 107 mmol/L (98-107); Estimated Creatinine Clearance 109 ml/min; Glucose 114 mg/dl (70-99); Potassium 4.0 mmol/L (3.5-5.1); Sodium 137 mmol/L (135-145); Total Protein 6.6 g/dl (6.3-8.2); eGFR > 60.00
[2025-03-27 07:43] VITALS: BP 108/66
[2025-03-27] MEDS: TOPROL XL 25 MG PO (08:06)
[2025-03-27] MEDS: LOW STRENGTH ASPIRIN 81 MG PO (08:06)
[2025-03-27] MEDS: ZESTRIL 2.5 MG PO (08:06)
[2025-03-27] MEDS: ZYRTEC 10 MG PO (08:06)
[2025-03-27] MEDS: BRILINTA 90 MG PO (08:06)
[2025-03-27] MEDS: PROTONIX 40 MG PO (08:06)
[2025-03-27 09:15] VITALS: BP 106/68
--- NOTE | 2025-03-27 09:32 | W.PN.CARDCBS ---
Addendum entered and electronically signed by Darshan Ulloa MD 03/27/25 14:37:
Seen and examined. I agree with the note by DEJAN Edgar.
Patient without chest pain this morning. No events on tele. Patient notes some blood in stool. Has history of bleeding hemorrhoids prior to this admission. Instructed him to let us know if bleeding continues to we can make appropriate decisions
regarding length/intensity of DAPT and ensure no development of anemia. Otherwise agree with plan as outlined by QUEBRACHO TANNER note.
Stable for discharge to home.
Original Note:
Today's Communication / Plan
-
NSTEMI, post PCI LAD, treat residual LCx medically
DAPT, high intensity statin, BB, ACEi
Cardiac rehab c/s
oob ambulate
home today
Impression / Plan
-
Impression/Plan: 53-year-old gentleman with remote tobacco abuse admitted with non-ST elevation myocardial infarction.
#NSTEMI
-Acute, threat to life.
-Troponin peaked at 2.88.
-post PCI LAD 3.0x 38mm Xience Skypoint DARREN 03/26, residual LCx disease will treat medically
-had on episode of indigestion o/n, resolved this am
-Echocardiogram with preserved EF no WMA, no valvular disease
-Continue aspirin, ticagrelor, metoprolol, atorvastatin.
-oob ambulate
-Cardiac rehab c/s
-f/u cbc 2-4 weeks
#Ventricular ectopy
-no further ectopy noted on tele
-mild bradycardia when sleeping, switched metoprolol 25 bid to metoprolol xl 25 daily
#Hypertension
-This would be a new diagnosis, possibly conditional.
-continue metoprolol xl 25mg and lisinopril 2.5mg daily
-recommended monitoring BP at home and bring log to f/u apt
-Will check BMP in 2 weeks
#Hyperlipidemia
-New diagnosis.
-Total cholesterol = 209, LDL = 147, HDL = 43, Triglycerides = 99.
-Increased Atorvastatin to 80 mg daily with residual LCx disease
-Goal LDL < 55.
03/26/2025 [facility]:
1. Right dominant circulation with a 40% lesion in the distal RPL, a 30% lesion in the ostium of the circumflex, a 50% lesion in the midportion of OM1 with a 50-60% lesion in the distal circumflex proximal to the origin of the small OM 3, a 50-60%
lesion in the proximal D1, a 60% lesion in the apical LAD and a culprit, 80% lesion in the mid LAD status post successful IVUS guided PCI (Xience Skypoint 3.0 x 38 DARREN, postdilated with a 3.25 NC balloon throughout and a 3.5 x 20 NC balloon in the
proximal margin) with reduction in stenosis to 0%, maintaining AGUS-3 flow.
2. Normal filling pressures (LVEDP = 9 mmHg at 78.5 kg).
Progress Note - Cipher Expert
Subjective
Date of Service: March 27, 2025
currently cp free, denies sob, feels tired
Objective
Labs:
03/27/25 04:08
03/27/25 04:08
Labs
Hgb 13.1 g/dL (13.0-18.0) 03/27/25 04:08
Hct 37.3 % (39.0-52.0) L 03/27/25 04:08
Plt Count 279 10^3/uL (130-400) 03/27/25 04:08
APTT 95.4 Sec (23.4-35.0) H 03/26/25 01:50
Sodium 137 mmol/L (135-145) 03/27/25 04:08
Potassium 4.0 mmol/L (3.5-5.1) 03/27/25 04:08
BUN 16 mg/dl (9-20) 03/27/25 04:08
Creatinine 0.8 mg/dL (0.7-1.3) 03/27/25 04:08
Glucose 114 mg/dl (70-99) H 03/27/25 04:08
Troponins
03/24/25 03/24/25 03/24/25
13:11 16:08 19:26
Troponin I 0.017 0.117 H* D Cancelled
03/24/25 03/24/25 03/25/25
20:51 23:29 06:22
Troponin I 1.310 H* D 2.260 H* D 2.880 H* D
03/25/25
12:54
Troponin I 1.970 H* D
Vital Signs and I&O:
Vital Signs
Temp Pulse Resp BP Pulse Ox
97.8 F 46 18 106/68 100
03/27/25 07:44 03/27/25 09:15 03/27/25 07:44 03/27/25 09:15 03/27/25 07:44
Vital Signs
Temp Pulse Resp BP Pulse Ox
97.8 F 46 18 106/68 100
03/27/25 07:44 03/27/25 09:15 03/27/25 07:44 03/27/25 09:15 03/27/25 07:44
Intake & Output
03/25/25 03/26/25 03/27/25 03/28/25
06:59 06:59 06:59 06:59
Intake Total 240 / 240 1122 / 1122 1141 / 1141
Balance 240 / 240 1122 / 1122 1141 / 1141
Physical Exam
Physical Exam
NAD, AOX3
S1, S2, RRR, no murmurs
CTAB, non labored no wheeze
SNTND bsx4
R rad site c/d/i no HT, good pulse
--- NOTE | 2025-03-27 09:56 | CM ---
Reviewed chart. Met with Mr. Willett to review discharge plans. He states he is feeling well and maybe able to go home soon. Telephone call to [facility] to check on Ticagrelor. It is ready with a $10.00 co-pay. Prior to admission he resides with his
spouse and four children in a two story home with one step to enter. He has a full flight of steps to get to bedroom/full bathroom. He has a powder room on the first floor. Prior to admission he was independent with ambulation and adls. He does
not have any DME in the has a prescription plan and uses [facility]. Medical work-up in progress. The discharge plan is to return home with his spouse and children when medically stable.
--- NOTE | 2025-03-27 11:15 | PTCARENOTE ---
Pt states there was blood present with his bowel movement this morning. Quita Edgar NP made aware. Instructed pt to monitor and report if bleeding worsens, but to continue medications (ASA, Brilinta).
[2025-03-27 11:17] VITALS: BP 129/76
--- NOTE | 2025-03-27 14:37 | W.DS.TRANS ---
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
-
Discharge Instructions:
Discharge Diagnosis/Procedures NSTEMI, s/p angioplasty and stent to Left
Anterior Descending artery
Diet Low Cholesterol
Driving Restrictions No driving for 24 hours
Blood Work Check BMP in 2 weeks
Other Services Cardiac Rehab
Instructions:
Stand-Alone Forms: DC Instructions- Cath/EP Lab
Changes to Home Medications: Yes
Discharge Medications:
DC Medications w/original date entered in [employer]
Lion Main 1 cap PO DAILY Supplement 03/24/25
acetaminophen 500 mg tablet (Tylenol Extra Strength) 1,000 mg PO Q6HPRN PRN mild pain 03/24/25
cetirizine 10 mg tablet (Zyrtec) 10 mg PO DAILY Allergies 03/24/25
finasteride 1 mg tablet 1 mg PO DAILY hair loss 03/24/25
omega 0-dyt-rom-fish oil 900 mg-1,400 mg capsule,delayed release 1 cap PO DAILY Supplement 03/24/25
famotidine 20 mg tablet (Pepcid AC) 20 mg PO PRN PRN reflux 03/25/25
ticagrelor 90 mg tablet 90 mg PO BID #60 tabs 03/26/25
aspirin 81 mg chewable tablet 81 mg PO DAILY #1 tab 03/27/25
atorvastatin 80 mg tablet 80 mg PO QPM #30 tabs 03/27/25
lisinopril 2.5 mg tablet 2.5 mg PO DAILY #30 tabs 03/27/25
metoprolol succinate 25 mg tablet,extended release 24 hr 25 mg PO DAILY #30 tabs 03/27/25
Home Medication Changes
new to asa, ticagrelor, metoprolol, lisinopril, atorvastatin
Pending Results: No
== END 2025-03-27 15:09 | disposition home or self-care (01) | DRG 322 ==
LOC: IVU 19:13
PROVIDERS: Emergency Medicine; Internal Medicine Cardiovascular Disease; Physician Assistant; ADMITTING PHYSICIAN Internal Medicine Cardiovascular Disease; EMERGENCY PHYSICIAN Student in an Organized Health Care Education/Training Program; FAMILY PHYSICIAN Family Medicine
PROC: B240ZZ3 Ultrasonography of Single Coronary Artery, Intravascular (ICD-10-PCS; 2025-03-26)
PROC: 4A023N7 Measurement of Cardiac Sampling and Pressure, Left Heart, Percutaneous Approach (ICD-10-PCS; 2025-03-26)
PROC: B2111ZZ Fluoroscopy of Multiple Coronary Arteries using Low Osmolar Contrast (ICD-10-PCS; 2025-03-26)
PROC: 027034Z Dilation of Coronary Artery, One Artery with Drug-eluting Intraluminal Device, Percutaneous Approach (ICD-10-PCS; 2025-03-26)
DX: I21.4 Non-ST elevation (NSTEMI) myocardial infarction (principal); K21.9 Gastro-esophageal reflux disease without esophagitis; F17.290 Nicotine dependence, other tobacco product, uncomplicated; I10 Essential (primary) hypertension; I49.3 Ventricular premature depolarization; E78.5 Hyperlipidemia, unspecified; Z79.899 Other long term (current) drug therapy
CPT/HCPCS: 71046; 80053; 80061; 83036; 84443; 84484; 85025; 85027; 85347; 85730; 92978; 93005; 93306; 93458; 96365; 96366; 99152; 99153; 99291; C1725; C1753; C1769; C1874; C9600; Q9967

== ENCOUNTER 2025-04-04 10:56 | Outpatient (RCR) | payer BC, SELFPAY | END 2025-04-04 23:59 | disposition home or self-care (01) | LOC: CRHB 10:56 | PROVIDERS: ATTENDING PHYSICIAN Internal Medicine Cardiovascular Disease | DX: I25.10 Atherosclerotic heart disease of native coronary artery without angina pectoris (principal); Z95.5 Presence of coronary angioplasty implant and graft; I25.2 Old myocardial infarction | CPT/HCPCS: G0422; G0423 ==